=== PATIENT | female | born 1950 | race Caucasian/White ===

== ENCOUNTER 2017-05-16 01:06 | Emergency (ER) | payer MEDICARE, BC ==
[~2017-05-16] VITALS: Ht 162.6 cm; Wt 83.9 kg
[~2017-05-16 01:06] MED LIST: ACYCLOVIR400 MG PO; ARMOUR THYROID60 MG PO; CORTEF5 MG PO; DHEA25 MG PO; FLOVENT HFA12 G1 INH; FLUCONAZOLE150 MG PO; HYDROCHLOROTHIA25 MG PO; HYDROCORTISONE MISC; NASONEX17 GM NAS; PERCOCET 5-3251 EACH PO; POTASSIUM CHLO10 MEQ PO; TINACTIN133 GM TP
--- NOTE | 2017-05-16 18:36 | EKG ---
[facility] [address] [facility] [place], [place] [address] Signed Normal sinus rhythm Normal ECG When compared with ECG of 12-AUG-2016 23:30, No significant change was found Confirmed by SHANTHI CANTU MD ([id number]) on 05/16/2017 6:36:23 PM Electronically Signed By: SHANTHI CANTU MD 05/16/17 1836 PATIENT NAME: JONO SCHULZ Electrocardiogram DATE OF : 52 PHYSICIAN: SHANTHI CANTU MD REPORT #: [id number] REPORT IS CONFIDENTIAL AND NOT TO BE RELEASED WITHOUT AUTHORIZATION
== END 2017-05-16 02:32 | disposition home or self-care (01) ==
LOC: ED 01:06
DX: I10 Essential (primary) hypertension (principal); E27.40 Unspecified adrenocortical insufficiency; Z90.710 Acquired absence of both cervix and uterus; Z88.2 Allergy status to sulfonamides; Z88.1 Allergy status to other antibiotic agents; Z88.8 Allergy status to other drugs, medicaments and biological substances; Z79.51 Long term (current) use of inhaled steroids; Z79.899 Other long term (current) drug therapy; Z79.52 Long term (current) use of systemic steroids; Z88.4 Allergy status to anesthetic agent; Z91.018 Allergy to other foods
CPT/HCPCS: 71010; 80053; 83735; 84100; 84484; 85025; 93005; 93010; 99284

== ENCOUNTER 2019-08-14 19:04 | Emergency (ER) | payer MEDICARE, BC ==
[~2019-08-14] VITALS: Ht 162.6 cm; Wt 79.4 kg
[2019-08-14] MEDS ORDERED: ESTRACE0.5 MG (19:22)
--- NOTE | 2019-08-14 22:54 | EKG ---
[facility] [address] [facility] [place], [place] [address] Signed Normal sinus rhythm Normal ECG When compared with ECG of 16-MAY-2017 01:10, No significant change was found Confirmed by SHANTHI CANTU MD ([id number]) on 08/14/2019 10:53:48 PM Electronically Signed By: SHANTHI CANTU MD 08/14/19 2254 PATIENT NAME: JONO SCHULZ Electrocardiogram DATE OF : 52 PHYSICIAN: SHANTHI CANTU MD REPORT #: [id number] REPORT IS CONFIDENTIAL AND NOT TO BE RELEASED WITHOUT AUTHORIZATION
== END 2019-08-14 22:37 | disposition home or self-care (01) ==
LOC: ED 19:04
DX: R07.9 Chest pain, unspecified (principal); I10 Essential (primary) hypertension; Z91.011 Allergy to milk products; Z88.4 Allergy status to anesthetic agent; Z91.02 Food additives allergy status; Z88.2 Allergy status to sulfonamides; Z88.8 Allergy status to other drugs, medicaments and biological substances; Z88.1 Allergy status to other antibiotic agents; Z79.899 Other long term (current) drug therapy
CPT/HCPCS: 71045; 71260; 80053; 83735; 84484; 85025; 93005; 93010; 99285-25; Q9967

== ENCOUNTER 2022-10-24 10:45 | Day surgery (SDC) | payer MEDICARE, BC ==
[~2022-10-24] VITALS: Ht 162.6 cm; Wt 77.3 kg
[~2022-10-24 10:45] MED LIST changes: +BENADRYL25 MG PO; +BIOTIN5000 MCG PO; +CALCIUM CITRAT1 EA16 PO; +CALCIUM500 M1 PO; +COLLAGEN PLUS1 EACH PO; +CORAL CALCIUM1 EAC2 PO; +DHEA25 M1 PO; +ESTRADIOL/PROG/TEST SL; +GLUCOSAMINE &1 EACH PO; +HYDROCORTISONE 10MG PO; -HYDROCORTISONE MISC; +IPRAT-ALBUT 0.5-3 ML INH; +L-ARGININE500 M1 PO; +L-GLUTAMINE500 M1 PO; +L-METHYLFOLATE7.5 M1 PO; +LISINOPRIL5 MG PO; +MAGNESIUM500 MG PO; +METHYLCOBAL10000 MCG MM; +MILK THISTLE175 M2 PO; +MULTIVITAMINS1 EAC5 PO; +PHOSPHATIDYLSERI1 GM PO; +POTASSIUM CHLOR8 ME1 PO; +TRANSDERM-SCOP1 EACH TD; +UBIQUINOL100 MG PO; +VALSARTAN40 MG PO; +VENTOLIN HFA18 GM INH; +VITAMIN A10000 UNIT PO; +VITAMIN B122500 MCG PO; +VITAMIN C1000 MG PO; +VITAMIN C500 M5 PO; +VITAMIN D3125 MC3 PO; +VITAMIN E400 UNI2 PO; +ZYTAZE CAPSULE1 EACH PO; +[UNRECOGNIZED DRUG - OTHER] MM; +[UNRECOGNIZED DRUG - OTHER] PO
--- NOTE | 2022-10-24 12:30 | NUR ---
10/24/22 1230 Celia Schofield 1226- PT ARRIVES TO PACU AWAKE AND TALKING. PT REPORTS NO PAIN OR NAUSEA. RESP EVEN AND UNLABORED. OXYGEN SAT MID TO HIGH 90'S ON RA.
--- NOTE | 2022-10-26 09:53 | OR ---
[facility] [address] [place], [place] [address] Signed DATE OF OPERATION: 10/24/2022 SURGEON: Nasir Louise MD PREOPERATIVE DIAGNOSES: 1. History of Angelita fundoplication in 2004. 2. Generalized weakness and history of colon polyps. 3. Adrenal insufficiency. POSTOPERATIVE DIAGNOSES: 1. Normal upper endoscopy; well formed Angelita flap valve. 2. Polyps x7 of colon (small and scattered diverticula. PROCEDURES: 1. Esophagogastroduodenoscopy with biopsy. 2. Total colonoscopy to cecum with cold morcellation polypectomy x7. ANESTHESIA: Intravenous sedation propofol infusion, Wilfredo Schwartz CRNA and preoperative steroid administration hydrocortisone 100 mg IV. INDICATION: This 72-year-old white woman has numerous medical problems and complex past medical history. She is said to have adrenal insufficiency for which she takes steroid supplementation. She has been feeling "weak" and tired and admits also to chronic fatigue syndrome. She has undergone a Angelita fundoplication in 2004 and has had polypectomy in [place] in 2018. She is here for upper endoscopy and colonoscopy. The risks of bleeding, infection, and perforation were reviewed with her. She understands and wished to proceed. FINDINGS: She was given hydrocortisone 100 mg IV preoperatively. She had no episodes of hypotension or clinical evidence of steroid deficiency. Upper endoscopy confirmed a normal esophagus, stomach and duodenum. CLOtest was negative. The flap valve from Angelita fundoplication was well formed. The colon was well prepped. There were seven polyps, all of them adenomatous in appearance and all excised completely, none of them large and with certainly no evidence of malignancy. She had scattered diverticula as well. Electronically Signed By: NASIR LOUISE MD 10/26/22 0953 PATIENT NAME: JONO SCHULZ OPERATIVE REPORT DATE OF : 52 REPORT #: [id number] PHYSICIAN: NASIR LOUISE MD PCP: OLLIE HERNANDES REPORT IS CONFIDENTIAL AND NOT TO BE RELEASED WITHOUT AUTHORIZATION [facility] [address] [place], [place] [address] Signed PROCEDURE IN DETAIL: The patient was brought to the endoscopy suite and remained in the supine position per her preference. She was given intravenous sedation with propofol infusional technique. A bite block was placed and lidocaine hypopharyngeal anesthesia was given. An Olympus video upper endoscope was passed in the hypopharynx and easily into the esophagus. The esophagus, stomach and duodenum were well examined. Retroflexed view in the stomach showed a Angelita fundoplication type flap valve which was intact and without sign of problem. Scope was manipulated to about level for biopsies of the duodenum, stomach and distal and midesophagus. All areas examined were normal. Plans were made for colonoscopy. Given her belief that her positioning in the left lateral decubitus would cause cardiac arrhythmias (however unlikely that would be). I did leave her in the supine position. Colonoscopy was performed in supine position. Digital rectal examination was normal. An Olympus video colonoscope was passed in the rectum and manipulated throughout the colon noting a polyp in the left colon initially, which was excised with cold morcellation technique. The scope was ultimately passed to the cecum. The ileocecal valve and appendiceal orifice were normal. There was a small polyp of the cecum, which was excised with cold morcellation technique. The scope was then withdrawn and at the hepatic flexure two similar polyps were noted at the hepatic flexure, both excised with cold morcellation technique. The right mid colon had a polyp prior to that, which was excised as well. Further withdrawal showed a transverse colon polyp, which was excised with cold morcellation technique and ultimately a splenic flexure polyp also excised similarly. In aggregate seven polyps were excised. The remaining left colon and sigmoid appeared normal as did the rectum. The scope was removed. The patient was taken to the recovery room in good condition. CONCLUDING DIAGNOSIS: 1. Normal upper endoscopy. 2. Multiple polyps on colonoscopy. PLAN: Recommend repeat colonoscopy in 5 years, sooner if clinically indicated. She will return to the ongoing care of DANIEL Albrecht, otherwise. MD MICKI Chandra/PAIGEL /[id number] Electronically Signed By: NASIR LOUISE MD 10/26/22 0953 PATIENT NAME: JONO SCHULZ OPERATIVE REPORT DATE OF : 52 REPORT #: [id number] PHYSICIAN: NASIR LOUISE MD PCP: OLLIE HERNANDES REPORT IS CONFIDENTIAL AND NOT TO BE RELEASED WITHOUT AUTHORIZATION [address] [address] Signed cc: DANIEL Albrecht Copies: ~ Electronically Signed By: NASIR LOUISE MD 10/26/22 0953 PATIENT NAME: JONO SCHULZ OPERATIVE REPORT DATE OF : 52 REPORT #: [id number] PHYSICIAN: NASIR LOUISE MD PCP: OLLIE HERNANDES REPORT IS CONFIDENTIAL AND NOT TO BE RELEASED WITHOUT AUTHORIZATION
--- NOTE | 2022-10-29 12:18 | PATH ---
[facility] [address] [place], [place] [address] Signed SPECIMEN(S): A DUODENAL BIOPSY SPECIMEN(S): B ANTRUM BIOPSY SPECIMEN(S): C GASTRIC POLYP SPECIMEN(S): D DISTAL ESOPHAGEAL BIOPSY SPECIMEN(S): E MID ESOPHAGEAL BIOPSY SPECIMEN(S): F DESCENDING/LEFT COLON POLYP SPECIMEN(S): G HEPATIC FLEXURE POLYPS SPECIMEN(S): H ASCENDING/RIGHT COLON POLYP SPECIMEN(S): I CECUM POLYP SPECIMEN(S): J TRANSVERSE COLON POLYP SPECIMEN(S): K SPLENIC FLEXURE POLYP SPECIMEN SOURCE: A. DUODENAL BIOPSY B. ANTRUM BIOPSY C. GASTRIC POLYP D. DISTAL ESOPHAGEAL BIOPSY E. MID ESOPHAGEAL BIOPSY F. DESCENDING/LEFT COLON POLYP G. HEPATIC FLEXURE POLYPS H. ASCENDING/RIGHT COLON POLYP I. CECUM POLYP J. TRANSVERSE COLON POLYP K. SPLENIC FLEXURE POLYP CLINICAL HISTORY: History of GERD with esophagitis; anemia; dysphagia; history of polyps. Post: Normal EGD, diverticulosis, multiple polyps FINAL PATHOLOGIC DIAGNOSIS: A. Duodenal biopsy: - Benign duodenal mucosa, negative for specific diagnostic abnormality. B. Antrum biopsy: - Benign gastric antral-type mucosa with focal slight chronic inflammation. - Negative for evidence of Helicobacter organisms on routine HE stained sections. C. Gastric polyp: - Benign gastric-type mucosa with slight polypoid features and focal chronic inflammation. - Negative for evidence of Helicobacter organisms on routine HE stained sections. PATIENT NAME: JAZZJONO PATHOLOGY DATE OF : 52 REPORT #: [id number] PHYSICIAN: JOSE CARLOS JENKINS PCP: OLLIE HERNANDES REPORT IS CONFIDENTIAL AND NOT TO BE RELEASED WITHOUT AUTHORIZATION [facility] [address] [place], [place] [address] Signed D. Distal esophageal biopsy: - Benign esophageal mucosa, negative for increased epithelial eosinophils. - Negative for glandular mucosa. E. Mid esophageal biopsy: - Benign esophageal mucosa, negative for increased epithelial eosinophils. F. Descending / left colon polyp: - Tubular adenoma (one fragment). G. Hepatic flexure polyps: - Tubular adenoma (two fragments). H. Ascending / right colon polyp: - Tubular adenoma (one fragment). I. Cecum polyp: - Tubular adenoma (one fragment). J. Transverse colon polyp: - Tubular adenoma (one fragment). K. Splenic flexure polyp: - Tubular adenoma (one fragment). JVR:[facility]:[id number] MICROSCOPIC EXAMINATION: Histologic sections of all submitted blocks are examined by light microscopy. These findings, together with the gross examination, support the pathologic diagnosis. GROSS DESCRIPTION: A. The specimen, labeled and designated "Jazz, P, 1." and designated on the requisition "duodenum biopsy," is received in formalin and consists of two wilkerson soft tissue fragments that each measure 0.3 cm in greatest dimension. The specimen is entirely submitted in (A1). B. The specimen, labeled and designated "Jazz, P, 2." and designated on the requisition "antrum biopsy," is received in formalin and consists of two wilkerson soft tissue fragments that measure 0.3 and 0.5 cm in greatest dimension. The specimen is entirely submitted in (B1). C. The specimen, labeled and designated "Jazz, P, 3." and designated on the requisition "gastric polyp," is received in formalin and consists of one wilkerson soft tissue fragment that is 0.4 cm in greatest dimension. The specimen is entirely submitted in (C1). D. The specimen, labeled and designated "Jag Schulz, 4." and designated on the requisition "distal esophagus biopsy," is received in formalin and consists of two white-wilkerson soft tissue fragments that PATIENT NAME: JONO SCHULZ PATHOLOGY DATE OF : 52 REPORT #: [id number] PHYSICIAN: JOSE CARLOS JENKINS PCP: OLLIE HERNANDES REPORT IS CONFIDENTIAL AND NOT TO BE RELEASED WITHOUT AUTHORIZATION [facility] [address] [place], [place] [address] Signed measure 0.5 and 0.8 cm in greatest dimension. The specimen is entirely submitted in (D1). E. The specimen, labeled and designated "Jag Schulz, 5" and designated on the requisition "mid esophagus biopsy," is received in formalin and consists of two white-wilkerson soft tissue fragments that measure 0.3 and 0.5 cm in greatest dimension. The specimen is entirely submitted in (E1). F. The specimen, labeled and designated "Jag Schulz, 6." and designated on the requisition "descending colon polyp," is received in formalin and consists of one wilkerson soft tissue fragment that is 0.3 cm in greatest dimension. The specimen is entirely submitted in (F1). G. The specimen, labeled and designated "Schulz, P, 7." and designated on the requisition "hepatic flexure polyps," is received in formalin and consists of three wilkerson soft tissue fragments that measure 0.2 to 0.4 cm in greatest dimension. The specimen is entirely submitted in (G1). H. The specimen, labeled and designated "Jazz, P, 8." and designated on the requisition "ascending/right colon polyp," is received in formalin and consists of one wilkerson soft tissue fragment that is 0.4 cm in greatest dimension. The specimen is entirely submitted in (H1). I. The specimen, labeled and designated "Jazz, P, 9." and designated on the requisition "cecum polyp," is received in formalin and consists of one wilkerson soft tissue fragment that is 0.4 cm in greatest dimension. The specimen is entirely submitted in (I1). J. The specimen, labeled and designated "Jazz, P, 10." and designated on the requisition "transverse colon polyp," is received in formalin and consists of two wilkerson soft tissue fragments that measure 0.1 to 0.4 cm in greatest dimension. The specimen is entirely submitted in (J1). K. The specimen, labeled and designated "Jazz, P, 11." and designated on the requisition "splenic flexure polyp," is received in formalin and consists of one wilkerson soft tissue fragment that is 0.4 cm in greatest dimension. The specimen is entirely submitted in (K1). FB (under the direct supervision of a pathologist) The Gross Description was prepared using a voice recognition system. The report was reviewed for accuracy; however, sound-alike word errors, addition and/or deletions may occur. If there is any question about this report, please contact Client Services. PERFORMING LABORATORY: PATIENT NAME: JONO SCHULZ PATHOLOGY DATE OF : 52 REPORT #: [id number] PHYSICIAN: JOSE CARLOS PATHOLOGY PCP: OLLIE HERNANDES REPORT IS CONFIDENTIAL AND NOT TO BE RELEASED WITHOUT AUTHORIZATION [facility] [address] [place] [address] Signed The technical component was performed by [facility], [address] [place] [id number] (CLIA# [id number]). Professional interpretation was performed by [facility], [address] [place] [phone] (CLIA#: [id number]). Diagnostician: Christo Reynolds MD Pathologist Electronically Signed 10/29/2022 Copies: ~ PATIENT NAME: JONO SCHULZ PATHOLOGY DATE OF : 52 REPORT #: [id number] PHYSICIAN: JOSE CARLOS PATHOLOGY PCP: OLLIE HERNANDES REPORT IS CONFIDENTIAL AND NOT TO BE RELEASED WITHOUT AUTHORIZATION
== END 2022-10-24 13:05 | disposition home or self-care (01) ==
LOC: OPS 10:45 → DS 10:45 → OPS 12:00 → DS 14:30 → OPS 14:30 → DS 10-25 08:25
PROVIDERS: ATTEND Surgery
PROC: 0DJD8ZZ Inspection of Lower Intestinal Tract, Via Natural or Artificial Opening Endoscopic (ICD-10-PCS; principal; 2022-10-24 12:00)
DX: Z12.11 Encounter for screening for malignant neoplasm of colon (principal); K21.00 Gastro-esophageal reflux disease with esophagitis, without bleeding; D12.2 Benign neoplasm of ascending colon; D12.0 Benign neoplasm of cecum; D12.4 Benign neoplasm of descending colon; D12.3 Benign neoplasm of transverse colon; E27.40 Unspecified adrenocortical insufficiency; I10 Essential (primary) hypertension; Z86.010 Personal history of colon polyps; Z90.11 Acquired absence of right breast and nipple; Z90.711 Acquired absence of uterus with remaining cervical stump
CPT/HCPCS: 00731; J1720; J2704; J7030